=== PATIENT | male | born 1960 | race Caucasian/White ===

== ENCOUNTER 2020-06-20 14:38 | Emergency (ER) | payer OTHER | END 2020-06-20 16:42 | disposition home or self-care (01) | LOC: ER1 14:38 | DX: S01.01XA Laceration without foreign body of scalp, initial encounter (principal); G23.8 Other specified degenerative diseases of basal ganglia; I10 Essential (primary) hypertension; Z23 Encounter for immunization; Z88.0 Allergy status to penicillin; W22.8XXA Striking against or struck by other objects, initial encounter; Y93.89 Activity, other specified | CPT/HCPCS: 12005; 70450; 90471; 90714; 99283 ==